=== PATIENT | male | born 1980 | race Caucasian/White ===

== ENCOUNTER 2017-03-20 12:58 | Emergency (ER) | payer OTHER | END 2017-03-20 15:45 | disposition home or self-care (01) | LOC: ER 12:58 | DX: M51.16 Intervertebral disc disorders with radiculopathy, lumbar region (principal); F17.210 Nicotine dependence, cigarettes, uncomplicated | CPT/HCPCS: 72131; 96372; 99283-25 ==

== ENCOUNTER 2017-03-26 08:33 | Emergency (ER) | payer OTHER | END 2017-03-26 10:58 | disposition home or self-care (01) | LOC: ER 08:33 | DX: M54.5 Low back pain (principal); M51.16 Intervertebral disc disorders with radiculopathy, lumbar region; M41.9 Scoliosis, unspecified; F17.210 Nicotine dependence, cigarettes, uncomplicated | CPT/HCPCS: 72128; 72131; 96372; 99283-25; J2930 ==